=== PATIENT | female | born 1985 | race Caucasian/White ===

== ENCOUNTER 2016-08-19 13:25 | Emergency (ER) | payer OTHER ==
[2016-08-19 13:36] VITALS: BP 145/94; PULSE 84; RESP 16; TEMP 98.2; O2SAT 96
--- NOTE | 2016-08-19 13:46 | EDPHY ---
H & P Stated Complaint: R ANKLE INJURY Time Seen by Provider: 08/19/16 13:31 HPI/ROS: CHIEF COMPLAINT: Right ankle pain and swelling HISTORY OF PRESENT ILLNESS: The patient presents to the ED with a 1 day history of right ankle pain and swelling after she rolled her ankle while hiking yesterday. Since that time she has had persistent pain and is having difficulty with weight-bearing. The patient denies any associated pain in her knee, hip or back. She denies associated numbness or weakness. She denies additional complaints. REVIEW OF SYSTEMS: A comprehensive 10 point review of systems is otherwise negative aside from elements mentioned in the history of present illness. Source: Patient Exam Limitations: No limitations - Personal History Current Tetanus/Diphtheria Vaccine: Yes Tetanus Vaccine Date: 2010 - Medical/Surgical History Hx Asthma: No Hx Chronic Respiratory Disease: No Hx Diabetes: No Hx Cardiac Disease: No Hx Renal Disease: No Hx Cirrhosis: No Hx Alcoholism: No Hx HIV/AIDS: No Hx Splenectomy or Spleen Trauma: No Other PMH: migraines, tonsillectomy, appendectomy, 7 TBIs - Social History Smoking Status: Never smoked - Physical Exam Exam: General appearance: alert no distress Right ankle: There is swelling and tenderness over the medial malleolus. Ankle joint is stable and there is no tenderness over the Achilles tendon. The foot is nontender without swelling. Neurologic exam: The patient has normal sensation and motor function distal to the injury. Vascular exam: Normal pulses and capillary refill in the foot DIFFERENTIAL DIAGNOSIS: After history and physical exam differential diagnosis was considered for ankle injury including sprain, fracture, dislocation and soft tissue injury. Constitutional: Initial Vital Signs Temperature (C) 36.8 C 08/19/16 13:35 Heart Rate 84 08/19/16 13:35 Respiratory Rate 16 08/19/16 13:35 Blood Pressure 145/94 H 08/19/16 13:35 O2 Sat (%) 96 08/19/16 13:35 O2 Delivery Mode Room Air Allergies/Adverse Reactions: cefaclor [From [facility]] Allergy (Verified 03/20/16 17:46) lidocaine Allergy (Verified 03/20/16 17:46) Home Medications: Medication Instructions Recorded Control Pills 03/20/16 Medical Decision Making - Diagnostics Imaging: Right ankle x-ray: Images reviewed by myself, and discussed with radiologist. Impression: Negative for acute fracture ED Course/Re-evaluation: The patient presents to the ED for evaluation of right ankle pain and swelling. Her x-ray demonstrates no evidence of an acute fracture. The patient will be given a Waters boot and advised to use crutches as needed. She should follow up with Dr. Blu Cortez our on-call orthopedic surgeon for any symptoms which persists past 7-10 days as this may be the sign of an injury not noted on the x- ray today. Departure - Departure Disposition: Home, Routine, Self-Care Clinical Impression: Ankle sprain Condition: Good Instructions: Ankle Sprain (ED) Additional Instructions: 1. Take Ibuprofen or Motrin 600 mg by mouth three times a day. 2. Wear Waters boot and use crutches as needed. 3. Please follow up with the orthopedic surgeon you have been referred to for any persistent pain, swelling or immobility that past 7-10 days as this may be the sign of an injury not noted on the x-ray today. Referrals: Blu Cortez MD [Medical Doctor] - As per Instructions
== END 2016-08-19 14:38 | disposition home or self-care (01) ==
DX: S93.401A Sprain of unspecified ligament of right ankle, initial encounter (principal); X58.XXXA Exposure to other specified factors, initial encounter; Y99.8 Other external cause status; Y93.01 Activity, walking, marching and hiking
CPT/HCPCS: L4386